=== PATIENT | male | born 1975 | race Caucasian/White ===

== ENCOUNTER → 2017-07-28 | Outpatient (CLI) | payer OTHER, MEDICAID ==
[2016-11-08 19:39] VITALS: BP 131/72
--- NOTE | 2017-07-28 15:47 | RAD ---
Examination: X-rays of the left ankle. Clinical history: Left ankle swelling. Technique: Three views of the left ankle were obtained. Comparison: None available. Findings: Periarticular osteopenia is noted at the ankle. There is an apparent deformity or indeterminate age fracture involving the navicular bone. A CT of th e left foot could be obtained for more complete evaluation of this finding. Moderate osteoarthritic changes are noted at the talonavicular joint. No soft tissue abnormality is noted. Impression: 1. There is an apparent deformity or indeterminate age fracture involving the navicular bone. A CT of the left foot could be obtained for more complete evaluation of this finding. 2. Periarticular osteopenia is noted at the ankle. 3. Arthropathy, as described above. Reported By:
--- NOTE | 2017-07-28 16:12 | RAD ---
Examination: Left foot, three views History: Swelling Findings: There is moderate osteopenia and trabecular coarsening.No acute fracture is seen. There is chronic narrowing and deformity of the medial pole of the navicular. No localized bone destruction or pathologic calcification is seen. There is osteoarthritis at the 1st MTP joint. Impression: Nonspecific osteopenia. Deformity of the navicular may be related to old trauma or neurop athic arthropathy, which has been previously suggested on MR examination. No acute features are demon strated. Reported By:
--- NOTE | 2017-07-28 16:21 | RAD ---
Examination: Left knee, two views History: Swelling Findings: There is no evidence for fracture, dislocation, patellar displacement or synovial effusion. There is mild osteopenia and slight cortical thinning. Articular spaces are preserved. Impression: No acute bony abnormality demonstrated. Reported By:
== END ==
LOC: RAD 14:48
PROVIDERS: ATTEND Nurse Practitioner Family
DX: M25.562 Pain in left knee (principal); R22.42 Localized swelling, mass and lump, left lower limb
CPT/HCPCS: 73560; 73610; 73630

== ENCOUNTER 2023-04-02 08:54 | Observation (INO) ==
[2023-04-02 12:21] LABS: BASOPHILS % (AUTO) 0.3 % (0.2-1.0); EOSINOPHILS % (AUTO) 0.4 % (0.9-2.9); HEMATOCRIT 41.6 % (42.0-54.0); HEMOGLOBIN 14.1 g/dL (13.5-18.0); LYMPHOCYTES % (AUTO) 10.9 % (21.0-51.0); MEAN CORPUSCULAR HEMOGLOBIN 29.9 pg (27.0-34.0); MEAN PLATELET VOLUME 10.3 fL (7.4-11.0); MONOCYTES # (AUTO) 0.9 x10^3/uL (0.3-0.8); MONOCYTES % (AUTO) 10.6 % (0.0-13.0); NEUTROPHILS # (AUTO) 6.9 x10^3/uL (2.2-4.8); NEUTROPHILS % (AUTO) 77.8 % (42.0-75.0); PLATELET COUNT 237 X10^3/uL (150.0-450.0); RED BLOOD COUNT 4.72 X10^6/uL (4.7-6.0); WHITE BLOOD COUNT 8.9 X10^3/uL (3.6-10.0)
[2023-04-02] MEDS ORDERED: NS 1/2 1,000 ML IV 1,000 ML IV ONE (12:33)
[2023-04-02 12:37] LABS: ALANINE AMINOTRANSFERASE 19 Units/L (12-78); ALBUMIN 3.3 g/dL (3.4-5.0); ALKALINE PHOSPHATASE 87 Units/L (46-116); ASPARTATE AMINO TRANSFERASE 22 Units/L (15-37); BLOOD UREA NITROGEN 19 mg/dL (7-18); CALCIUM 8.8 mg/dL (8.5-10.1); CHLORIDE 105 mmol/L (98-107); COR CA(FOR HYPOALB) 9.4 mg/dL (8.5-10.1); CREATININE 0.85 mg/dL (0.70-1.30); GLUCOSE 100 mg/dL (65-99); POTASSIUM 4.1 mmol/L (3.5-5.1); SODIUM 143 mmol/L (136-145); TOTAL PROTEIN 7.1 g/dL (6.4-8.2); eGFR NON BLACK RACES > 60 (>60)
[2023-04-02] MEDS: NS 1/2 1,000 ML IV 1,000 ML IV SCH (12:40)
[2023-04-02] MEDS: LEVAQUIN PREMIX IV 750 MG 750 MG/150 ML BAG IV SCH (12:43)
[2023-04-02] MEDS: ROBITUSSIN DM PO SCH ×3 (13:00→20:24)
[2023-04-02] MEDS: XOPENEX 1.25 MG/3 ML NEBULE NEB SCH ×3 (13:55→21:23)
[2023-04-02 14:33] VITALS: BMI 24.5
[2023-04-02] MEDS ORDERED: TRILEPTAL PO ONE (20:00)
[2023-04-02] MEDS: ZOLOFT PO SCH (20:24)
[2023-04-02] MEDS ORDERED: TRILEPTAL PO SCH (21:00)
[2023-04-02] MEDS: PULMICORT NEB TX 0.5 MG NEB SCH (21:23)
[2023-04-03] MEDS ORDERED: NS 1/2 1,000 ML IV 1,000 ML IV ONE (01:04)
--- NOTE | 2023-04-03 03:34 | RAD ---
HISTORYPNEUMONIA Relevant Clinical InformationSTUDYCHEST, 1 VIEWCOMPARISONNoneFINDINGSThe trachea is midline. The cardiac silhouette is unremarkable. There is consolidation involving the medial right lung. Left lung is clear. No pneumothorax. The bony thorax is unremarkable.IMPRESSIONRight lung pneumonia.Electronically signed by: Tanvir Weiner (Apr 03, 2023 03:33:13)
[2023-04-03] MEDS: NS 1/2 1,000 ML IV 1,000 ML IV SCH (05:20)
[2023-04-03 06:42] LABS: BASOPHILS % (AUTO) 0.4 % (0.2-1.0); EOSINOPHILS % (AUTO) 0.7 % (0.9-2.9); HEMATOCRIT 35.4 % (42.0-54.0); LYMPHOCYTES % (AUTO) 16.3 % (21.0-51.0); MEAN CORPUSCULAR HEMOGLOBIN 29.8 pg (27.0-34.0); MEAN CORPUSCULAR HGB CONC 33.8 g/dL (33.0-35.0); MEAN CORPUSCULAR VOLUME 88.2 fL (80.0-100.0); MONOCYTES # (AUTO) 0.9 x10^3/uL (0.3-0.8); MONOCYTES % (AUTO) 14.8 % (0.0-13.0); NEUTROPHILS % (AUTO) 67.8 % (42.0-75.0); PLATELET COUNT 215 X10^3/uL (150.0-450.0); RED BLOOD COUNT 4.01 X10^6/uL (4.7-6.0); RED CELL DISTRIBUTION WIDTH 14.1 % (11.6-16.5); WHITE BLOOD COUNT 5.8 X10^3/uL (3.6-10.0)
[2023-04-03 06:55] LABS: ALANINE AMINOTRANSFERASE 16 Units/L (12-78); ALBUMIN 2.6 g/dL (3.4-5.0); ALKALINE PHOSPHATASE 72 Units/L (46-116); ASPARTATE AMINO TRANSFERASE 15 Units/L (15-37); BLOOD UREA NITROGEN 13 mg/dL (7-18); CALCIUM 7.9 mg/dL (8.5-10.1); CHLORIDE 106 mmol/L (98-107); COR NA(FOR HYPERGLY) 141 mmol/L (136-145); CREATININE 0.75 mg/dL (0.70-1.30); GLUCOSE 111 mg/dL (65-99); MAGNESIUM 1.8 mg/dL (2.0-2.9); POTASSIUM 3.6 mmol/L (3.5-5.1); SODIUM 141 mmol/L (136-145); TOTAL PROTEIN 5.9 g/dL (6.4-8.2); eGFR NON BLACK RACES > 60 (>60)
[2023-04-03] MEDS ORDERED: CONSULT PHARMACY - POTASSIUM & MAGNESIUM XX SCH ×2 (08:00→09:00)
[2023-04-03] MEDS ORDERED: MAG-OX TAB PO SCH (08:00)
[2023-04-03] MEDS ORDERED: K-DUR TAB 20 MEQ PO SCH (08:00)
[2023-04-03] MEDS ORDERED: NS 1/2 + KCL 20 MEQ/L 1,000 ML IV SCH (08:00)
[2023-04-03] MEDS: PULMICORT NEB TX 0.5 MG NEB SCH ×2 (08:16→20:30)
[2023-04-03] MEDS: XOPENEX 1.25 MG/3 ML NEBULE NEB SCH ×4 (08:16→20:30)
[2023-04-03] MEDS ORDERED: DEPAKOTE D.R. TAB PO ONE (08:26)
[2023-04-03] MEDS ORDERED: DEPAKENE PO SCH (09:00)
[2023-04-03] MEDS ORDERED: DEPAKOTE D.R. TAB PO SCH (09:00)
[2023-04-03] MEDS: ROBITUSSIN DM PO SCH ×4 (09:15→21:54)
[2023-04-03] MEDS: KLONOPIN TAB 1 MG PEG SCH (09:15)
[2023-04-03] MEDS: LEVAQUIN PREMIX IV 750 MG 750 MG/150 ML BAG IV SCH (09:15)
[2023-04-03] MEDS: ZOLOFT PO SCH ×2 (09:15→21:54)
[2023-04-03] MEDS: DEPAKENE GT SCH ×2 (10:17→21:54)
[2023-04-03] MEDS: NS 1/2 + KCL 20 MEQ/L 1,000 ML with MAGNESIUM SULFATE 50% INJ VIAL 1 G IV SCH ×4 (10:18→21:19)
[2023-04-03] MEDS ORDERED: MAGNESIUM SULFATE 50% INJ VIAL ONE (20:30)
--- NOTE | 2023-04-04 06:15 | RAD ---
HISTORYPNEUMONIA Relevant Clinical InformationSTUDYCHEST, 1 [id number] trachea is midline. The cardiac silhouette is mildly enlarged.. The lungs are clear without focal infiltrate or effusion. The bony thorax is unremarkable.IMPRESSIONMild cardiomegalyNo active cardiopulmonary disease.Electronically signed by: Tanvir Weiner (Apr 04, 2023 06:14:27)
[2023-04-04 06:38] LABS: BASOPHILS % (AUTO) 0.7 % (0.2-1.0); EOSINOPHILS # (AUTO) 0.2 x10^3/uL (0.0-0.2); EOSINOPHILS % (AUTO) 3.1 % (0.9-2.9); HEMATOCRIT 36.9 % (42.0-54.0); HEMOGLOBIN 12.4 g/dL (13.5-18.0); LYMPHOCYTES # (AUTO) 1.4 X10^3/uL (1.3-2.9); LYMPHOCYTES % (AUTO) 24.8 % (21.0-51.0); MEAN CORPUSCULAR HEMOGLOBIN 29.7 pg (27.0-34.0); MEAN CORPUSCULAR HGB CONC 33.6 g/dL (33.0-35.0); MEAN CORPUSCULAR VOLUME 88.3 fL (80.0-100.0); MEAN PLATELET VOLUME 9.9 fL (7.4-11.0); MONOCYTES # (AUTO) 0.8 x10^3/uL (0.3-0.8); MONOCYTES % (AUTO) 14.9 % (0.0-13.0); NEUTROPHILS # (AUTO) 3.1 x10^3/uL (2.2-4.8); NEUTROPHILS % (AUTO) 56.5 % (42.0-75.0); PLATELET COUNT 243 X10^3/uL (150.0-450.0); RED BLOOD COUNT 4.18 X10^6/uL (4.7-6.0); RED CELL DISTRIBUTION WIDTH 14.1 % (11.6-16.5); WHITE BLOOD COUNT 5.5 X10^3/uL (3.6-10.0)
[2023-04-04 06:59] LABS: ALANINE AMINOTRANSFERASE 17 Units/L (12-78); ALBUMIN 2.6 g/dL (3.4-5.0); ALKALINE PHOSPHATASE 74 Units/L (46-116); ASPARTATE AMINO TRANSFERASE 16 Units/L (15-37); BLOOD UREA NITROGEN 5 mg/dL (7-18); CALCIUM 7.8 mg/dL (8.5-10.1); CARBON DIOXIDE 22.9 mmol/L (21-32); CHLORIDE 108 mmol/L (98-107); COR CA(FOR HYPOALB) 8.9 mg/dL (8.5-10.1); CREATININE 0.78 mg/dL (0.70-1.30); GLUCOSE 108 mg/dL (65-99); POTASSIUM 3.6 mmol/L (3.5-5.1); SODIUM 143 mmol/L (136-145); TOTAL PROTEIN 5.9 g/dL (6.4-8.2); eGFR NON BLACK RACES > 60 (>60)
--- NOTE | 2023-04-04 07:29 | DR.H&P ---
H&P History & Physical for Day of: H&P Date: 04/02/23 Chief Complaint Chief Complaint: Cough, respiratory infection unresolved with outpatient treatment. Allergies Allergies Allergy/AdvReac Type Severity Reaction Status Date / Time ampicillin Allergy Unknown Verified 03/24/23 15:50 codeine Allergy Unknown Verified 03/24/23 15:50 Penicillins Allergy Unknown Verified 03/24/23 15:50 History of Present Illness History of Present Illness: This is a 48-year-old white male who has cerebral palsy. I have been treating him as an outpatient for tracheitis/tracheobr onchitis however the patient has not been getting better. We have given him steroids and the antibiotics to PEG tube however he has been getting worse. His mother called this morning and we decided to go ahead and direct admitted to the hospital so we started him on IV antibiotics, jet nebs and check a chest x-ray and routine labs. They got into the hospital they found him to be hypoxic with O2 sat of 89% on room air. They started him on 2 L and afterwards he came up to 93%. Chest x-ray still pending at this time however we have started him on IV Levaquin and done sputum cultures along with blood cultures. Past Medical History Past Medical History: Anxiety, Arthritis, Depression, GERD and Seizures Additional Medical History: Mental retardation Cerebral palsy; severe Past Surgical History Surgical History: Cholecystectomy Family History Family Medical History: Cancer and Coronary Artery Disease Social History Does patient currently use any type of tobacco product: No Have you used tobacco products in the last 12 months: No Type of Tobacco Use: None Does any household member use tobacco: No Alcohol Use: None Drug Use: None Medications Home Medications: Home Medications Medication Instructions Recorded Confirmed Type clonazepam 2 mg tablet 2 mg feeding tube DAILY 10/28/22 04/02/23 History divalproex 500 mg tablet,delayed 500 mg DAILY 10/28/22 04/02/23 History release oxcarbazepine 150 mg tablet 150 mg feeding tube HS 10/28/22 04/02/23 History sertraline 50 mg tablet 50 mg feeding tube BID 10/28/22 04/02/23 History Labs Result Diagrams: 04/04/23 06:06 04/04/23 06:06 Labs: Laboratory WBC 8.9 X10^3/uL (3.6-10.0) 04/02/23 11:17 RBC 4.72 X10^6/uL (4.7-6.0) 04/02/23 11:17 Hgb 14.1 g/dL (13.5-18.0) 04/02/23 11:17 Hct 41.6 % (42.0-54.0) L 04/02/23 11:17 MCV 88.0 fL (80.0-100.0) 04/02/23 11:17 MCH 29.9 pg (27.0-34.0) 04/02/23 11:17 MCHC 34.0 g/dL (33.0-35.0) 04/02/23 11:17 RDW 14.0 % (11.6-16.5) 04/02/23 11:17 Plt Count 237 X10^3/uL (150.0-450.0) 04/02/23 11:17 MPV 10.3 fL (7.4-11.0) 04/02/23 11:17 Neut % (Auto) 77.8 % (42.0-75.0) H 04/02/23 11:17 Lymph % (Auto) 10.9 % (21.0-51.0) L 04/02/23 11:17 [place] % (Auto) 10.6 % (0.0-13.0) 04/02/23 11:17 Eos % (Auto) 0.4 % (0.9-2.9) L 04/02/23 11:17 Baso % (Auto) 0.3 % (0.2-1.0) 04/02/23 11:17 Neut # (Auto) 6.9 x10^3/uL (2.2-4.8) H 04/02/23 11:17 Lymph # (Auto) 1.0 X10^3/uL (1.3-2.9) L 04/02/23 11:17 [place] # (Auto) 0.9 x10^3/uL (0.3-0.8) H 04/02/23 11:17 Eos # (Auto) 0.0 x10^3/uL (0.0-0.2) 04/02/23 11:17 Baso # (Auto) 0.0 X10^3/uL (0.0-0.1) 04/02/23 11:17 Absolute Nucleated RBC 0.1 /100WBC 04/02/23 11:17 Sodium 143 mmol/L (136-145) 04/02/23 11:17 Corrected Sodium TNP 04/02/23 11:17 Potassium 4.1 mmol/L (3.5-5.1) 04/02/23 11:17 Chloride 105 mmol/L (98-107) 04/02/23 11:17 Carbon Dioxide 26.0 mmol/L (21-32) 04/02/23 11:17 BUN 19 mg/dL (7-18) H 04/02/23 11:17 Creatinine 0.85 mg/dL (0.70-1.30) 04/02/23 11:17 Est GFR (MDRD) Af Amer > 60 (>60) 04/02/23 11:17 Est GFR (MDRD) Non-Af > 60 (>60) 04/02/23 11:17 Glucose 100 mg/dL (65-99) H 04/02/23 11:17 Lactic Acid 0.8 mmol/L (0.4-2.0) 04/02/23 11:17 Calcium 8.8 mg/dL (8.5-10.1) 04/02/23 11:17 Corrected Calcium 9.4 mg/dL (8.5-10.1) 04/02/23 11:17 Total Bilirubin 0.40 mg/dL (0.2-1.0) 04/02/23 11:17 AST 22 Units/L (15-37) 04/02/23 11:17 ALT 19 Units/L (12-78) 04/02/23 11:17 Alkaline Phosphatase 87 Units/L (46-116) 04/02/23 11:17 Total Protein 7.1 g/dL (6.4-8.2) 04/02/23 11:17 Albumin 3.3 g/dL (3.4-5.0) L 04/02/23 11:17 Globulin 3.8 g/dL (2.5-4.5) 04/02/23 11:17 Albumin/Globulin Ratio 0.9 Ratio (1.1-2.1) L 04/02/23 11:17 Review of Systems Eyes: Other (Unable to obtain since patient has cerebral palsy and does not communicate.) Physical Exam Vital Signs: Vital Signs Temperature 97.4 F Pulse Rate [Bilateral Radial] 87 Pulse Rate 87 Respiratory Rate 20 Blood Pressure [Right Arm] 119/72 O2 Sat by Pulse Oximetry 93 O2 Sat by Pulse Oximetry 89 Oriented: Unable to test Respiratory: Diminished Throughout and Rhonchi Throughout Cardiovascular: Normal Auscultation: Bowel Sounds: Normal Palpation: Normal Tenderness: Normal Skin: Normal Musculoskeletal: Normal Psychiatric: Normal Mood Description: Calm Affect: Quiet Speech Pattern: Aphasic Assessment/Plan (1) Tracheobronchitis: Status: Acute Plan: Patient was started on pneumonia protocol. Lactic acid has been checked along with sputum culture, blood cultures x2 and the patient has been started on Levaquin 750 mg IV daily. Follow-up with chest x-ray when available. (2) Cerebral palsy: Qualifiers: Cerebral palsy type: unspecified type Qualified Code(s): G80.9 - Cerebral palsy, unspecified Status: Acute Plan: Continue divalproex, oxcarbazepine, sertraline and clonazepam. (3) GERD (gastroesophageal reflux disease): Status: Acute Plan: Start Pepcid 40 mg IV twice daily for GI protection. Review H&P Reviewed: Yes Patient was examined?: Yes
--- NOTE | 2023-04-04 07:30 | PCM.PROG ---
Progress Note Progress Note for Day of Date of Exam: 04/03/23 Subjective Subjective: Patient is doing better overall this morning. His mother reports that when he got here after with his oxygen on he settled down and was back to his normal self. Exam of his lungs today shows that he has significantly improved aeration his O2 sat is to the mid 90s. He has had no fever since admission. Continue treatment of the discharge patient 1 to 2 days. Past Medical Family Social History Allergies: Allergies ampicillin Allergy (Unknown, Verified 03/24/23 15:50) codeine Allergy (Unknown, Verified 03/24/23 15:50) Reason: Drug allergy Penicillins Allergy (Unknown, Verified 03/24/23 15:50) Vital Signs and I&O's Vital Signs: Vital Signs Temperature 97.9 F Temperature 98.7 F Pulse Rate [Bilateral Radial] 60 Pulse Rate [Bilateral Radial] 101 Respiratory Rate 20 Respiratory Rate 20 Blood Pressure [Left Arm] 84/55 Blood Pressure [Left Arm] 88/65 O2 Sat by Pulse Oximetry 95 O2 Sat by Pulse Oximetry 94 Intake and Output: Intake & Output 04/01/23 04/02/23 04/03/23 04/04/23 11:59 11:59 11:59 11:59 Intake Total 821 / 821 3348 / 3348 Balance 821 / 821 3348 / 3348 Physical Exam Oriented: Unable to test Respiratory: Diminished Cardiovascular: Normal Auscultation: Bowel Sounds: Normal Tenderness: Normal Skin: Normal Musculoskeletal: Normal Psychiatric: Normal Mood Description: Calm Affect: Quiet Speech Pattern: Appropriate Laboratory and Diagnostics Result Diagrams: 04/04/23 06:06 04/04/23 06:06 Labs: Laboratory WBC 5.5 X10^3/uL (3.6-10.0) 04/04/23 06:06 RBC 4.18 X10^6/uL (4.7-6.0) L 04/04/23 06:06 Hgb 12.4 g/dL (13.5-18.0) L 04/04/23 06:06 Hct 36.9 % (42.0-54.0) L 04/04/23 06:06 MCV 88.3 fL (80.0-100.0) 04/04/23 06:06 MCH 29.7 pg (27.0-34.0) 04/04/23 06:06 MCHC 33.6 g/dL (33.0-35.0) 04/04/23 06:06 RDW 14.1 % (11.6-16.5) 04/04/23 06:06 Plt Count 243 X10^3/uL (150.0-450.0) 04/04/23 06:06 MPV 9.9 fL (7.4-11.0) 04/04/23 06:06 Neut % (Auto) 56.5 % (42.0-75.0) 04/04/23 06:06 Lymph % (Auto) 24.8 % (21.0-51.0) 04/04/23 06:06 [place] % (Auto) 14.9 % (0.0-13.0) H 04/04/23 06:06 Eos % (Auto) 3.1 % (0.9-2.9) H 04/04/23 06:06 Baso % (Auto) 0.7 % (0.2-1.0) 04/04/23 06:06 Neut # (Auto) 3.1 x10^3/uL (2.2-4.8) 04/04/23 06:06 Lymph # (Auto) 1.4 X10^3/uL (1.3-2.9) 04/04/23 06:06 [place] # (Auto) 0.8 x10^3/uL (0.3-0.8) 04/04/23 06:06 Eos # (Auto) 0.2 x10^3/uL (0.0-0.2) 04/04/23 06:06 Baso # (Auto) 0.0 X10^3/uL (0.0-0.1) 04/04/23 06:06 Absolute Nucleated RBC 0.0 /100WBC 04/04/23 06:06 Sodium 143 mmol/L (136-145) 04/04/23 06:06 Corrected Sodium TNP 04/04/23 06:06 Potassium 3.6 mmol/L (3.5-5.1) 04/04/23 06:06 Chloride 108 mmol/L (98-107) H 04/04/23 06:06 Carbon Dioxide 22.9 mmol/L (21-32) 04/04/23 06:06 BUN 5 mg/dL (7-18) L 04/04/23 06:06 Creatinine 0.78 mg/dL (0.70-1.30) 04/04/23 06:06 Est GFR (MDRD) Af Amer > 60 (>60) 04/04/23 06:06 Est GFR (MDRD) Non-Af > 60 (>60) 04/04/23 06:06 Glucose 108 mg/dL (65-99) H 04/04/23 06:06 Lactic Acid 0.8 mmol/L (0.4-2.0) 04/02/23 11:17 Calcium 7.8 mg/dL (8.5-10.1) L 04/04/23 06:06 Corrected Calcium 8.9 mg/dL (8.5-10.1) 04/04/23 06:06 Magnesium 1.8 mg/dL (2.0-2.9) L 04/03/23 05:40 Total Bilirubin 0.20 mg/dL (0.2-1.0) 04/04/23 06:06 AST 16 Units/L (15-37) 04/04/23 06:06 ALT 17 Units/L (12-78) 04/04/23 06:06 Alkaline Phosphatase 74 Units/L (46-116) 04/04/23 06:06 Total Protein 5.9 g/dL (6.4-8.2) L 04/04/23 06:06 Albumin 2.6 g/dL (3.4-5.0) L 04/04/23 06:06 Globulin 3.3 g/dL (2.5-4.5) 04/04/23 06:06 Albumin/Globulin Ratio 0.8 Ratio (1.1-2.1) L 04/04/23 06:06 Plan (1) Tracheobronchitis: Status: Acute Plan: Patient was started on pneumonia protocol. Lactic acid has been checked along with sputum culture, blood cultures x2 and the patient has been started on Levaquin 750 mg IV daily. Follow-up with chest x-ray when available. (2) Cerebral palsy: Status: Acute Qualifiers: Cerebral palsy type: unspecified type Qualified Code(s): G80.9 - Cerebral palsy, unspecified Plan: Continue divalproex, oxcarbazepine, sertraline and clonazepam. (3) GERD (gastroesophageal reflux disease): Status: Acute Plan: Start Pepcid 40 mg IV twice daily for GI protection.
[2023-04-04] MEDS: LEVAQUIN PREMIX IV 750 MG 750 MG/150 ML BAG IV SCH (08:19)
[2023-04-04] MEDS: ROBITUSSIN DM PO SCH ×4 (08:20→21:28)
[2023-04-04] MEDS: PULMICORT NEB TX 0.5 MG NEB SCH ×2 (08:20→20:05)
[2023-04-04] MEDS: DEPAKENE GT SCH ×2 (08:20→21:28)
[2023-04-04] MEDS: XOPENEX 1.25 MG/3 ML NEBULE NEB SCH ×4 (08:21→20:05)
[2023-04-04] MEDS: KLONOPIN TAB 1 MG PEG SCH (08:21)
[2023-04-04] MEDS: ZOLOFT PO SCH ×2 (08:21→21:28)
[2023-04-04] MEDS: NS 1/2 + KCL 20 MEQ/L 1,000 ML with MAGNESIUM SULFATE 50% INJ VIAL 1 G IV SCH ×4 (11:23→21:28)
[2023-04-04] MEDS ORDERED: SOLU-Medrol 125 MG VIAL IVP ONE (13:15)
--- NOTE | 2023-04-04 13:15 | PCM.PROG ---
Progress Note Progress Note for Day of Date of Exam: 04/04/23 Subjective Subjective: Patient is resting comfortably this morning. He is satting between 94 and 95% on 2 L nasal cannula today. He has increased air entry bilaterally and decreased rhonchi. His white count is normal however given his low O2 sat still we will keep him over the next few days and I will add IV Solu-Medrol to his treatment today. Past Medical Family Social History Allergies: Allergies ampicillin Allergy (Unknown, Verified 03/24/23 15:50) codeine Allergy (Unknown, Verified 03/24/23 15:50) Reason: Drug allergy Penicillins Allergy (Unknown, Verified 03/24/23 15:50) Review of Systems ROS: No change since H&P Vital Signs and I&O's Vital Signs: Vital Signs Temperature 97.9 F Temperature 98.0 F Pulse Rate [Bilateral Radial] 76 Pulse Rate [Bilateral Radial] 77 Pulse Rate 81 Pulse Rate 80 Respiratory Rate 20 Respiratory Rate 20 Blood Pressure [Left Arm] 91/60 Blood Pressure [Left Arm] 125/60 O2 Sat by Pulse Oximetry 94 O2 Sat by Pulse Oximetry 94 O2 Sat by Pulse Oximetry 94 O2 Sat by Pulse Oximetry 94 Intake and Output: Intake & Output 04/02/23 04/03/23 04/04/23 04/05/23 11:59 11:59 11:59 11:59 Intake Total 821 / 821 3348 / 3348 Balance 821 / 821 3348 / 3348 Physical Exam Oriented: Unable to test Respiratory: Diminished Cardiovascular: Normal Auscultation: Bowel Sounds: Normal Tenderness: Normal Skin: Normal Musculoskeletal: Normal Psychiatric: Normal Mood Description: Calm Affect: Quiet Speech Pattern: Appropriate Laboratory and Diagnostics Result Diagrams: 04/04/23 06:06 04/04/23 06:06 Labs: 04/02/23 16:04 Blood Blood Culture - Preliminary 04/02/23 11:17 Blood Blood Culture - Preliminary Laboratory WBC 5.5 X10^3/uL (3.6-10.0) 04/04/23 06:06 RBC 4.18 X10^6/uL (4.7-6.0) L 04/04/23 06:06 Hgb 12.4 g/dL (13.5-18.0) L 04/04/23 06:06 Hct 36.9 % (42.0-54.0) L 04/04/23 06:06 MCV 88.3 fL (80.0-100.0) 04/04/23 06:06 MCH 29.7 pg (27.0-34.0) 04/04/23 06:06 MCHC 33.6 g/dL (33.0-35.0) 04/04/23 06:06 RDW 14.1 % (11.6-16.5) 04/04/23 06:06 Plt Count 243 X10^3/uL (150.0-450.0) 04/04/23 06:06 MPV 9.9 fL (7.4-11.0) 04/04/23 06:06 Neut % (Auto) 56.5 % (42.0-75.0) 04/04/23 06:06 Lymph % (Auto) 24.8 % (21.0-51.0) 04/04/23 06:06 [place] % (Auto) 14.9 % (0.0-13.0) H 04/04/23 06:06 Eos % (Auto) 3.1 % (0.9-2.9) H 04/04/23 06:06 Baso % (Auto) 0.7 % (0.2-1.0) 04/04/23 06:06 Neut # (Auto) 3.1 x10^3/uL (2.2-4.8) 04/04/23 06:06 Lymph # (Auto) 1.4 X10^3/uL (1.3-2.9) 04/04/23 06:06 [place] # (Auto) 0.8 x10^3/uL (0.3-0.8) 04/04/23 06:06 Eos # (Auto) 0.2 x10^3/uL (0.0-0.2) 04/04/23 06:06 Baso # (Auto) 0.0 X10^3/uL (0.0-0.1) 04/04/23 06:06 Absolute Nucleated RBC 0.0 /100WBC 04/04/23 06:06 Sodium 143 mmol/L (136-145) 04/04/23 06:06 Corrected Sodium TNP 04/04/23 06:06 Potassium 3.6 mmol/L (3.5-5.1) 04/04/23 06:06 Chloride 108 mmol/L (98-107) H 04/04/23 06:06 Carbon Dioxide 22.9 mmol/L (21-32) 04/04/23 06:06 BUN 5 mg/dL (7-18) L 04/04/23 06:06 Creatinine 0.78 mg/dL (0.70-1.30) 04/04/23 06:06 Est GFR (MDRD) Af Amer > 60 (>60) 04/04/23 06:06 Est GFR (MDRD) Non-Af > 60 (>60) 04/04/23 06:06 Glucose 108 mg/dL (65-99) H 04/04/23 06:06 Lactic Acid 0.8 mmol/L (0.4-2.0) 04/02/23 11:17 Calcium 7.8 mg/dL (8.5-10.1) L 04/04/23 06:06 Corrected Calcium 8.9 mg/dL (8.5-10.1) 04/04/23 06:06 Magnesium 1.8 mg/dL (2.0-2.9) L 04/03/23 05:40 Total Bilirubin 0.20 mg/dL (0.2-1.0) 04/04/23 06:06 AST 16 Units/L (15-37) 04/04/23 06:06 ALT 17 Units/L (12-78) 04/04/23 06:06 Alkaline Phosphatase 74 Units/L (46-116) 04/04/23 06:06 Total Protein 5.9 g/dL (6.4-8.2) L 04/04/23 06:06 Albumin 2.6 g/dL (3.4-5.0) L 04/04/23 06:06 Globulin 3.3 g/dL (2.5-4.5) 04/04/23 06:06 Albumin/Globulin Ratio 0.8 Ratio (1.1-2.1) L 04/04/23 06:06 Plan (1) Tracheobronchitis: Status: Acute Narrative Support Text: Chest x-ray shows no acute cardiopulmonary process. Plan: Patient was started on pneumonia protocol. Lactic acid has been checked along with sputum culture, blood cultures x2 and the patient has been started on Levaquin 750 mg IV daily. Add IV Solu-Medrol today. (2) Hypoxia: Status: Acute Plan: Add IV Solu-Medrol 125 mg IV x1 then 60 mg IV twice daily. (3) Cerebral palsy: Status: Acute Qualifiers: Cerebral palsy type: unspecified type Qualified Code(s): G80.9 - Cerebral palsy, unspecified Plan: Continue divalproex, oxcarbazepine, sertraline and clonazepam. (4) GERD (gastroesophageal reflux disease): Status: Acute Plan: Start Pepcid 40 mg IV twice daily for GI protection.
[2023-04-04] MEDS ORDERED: MAGNESIUM SULFATE 50% INJ VIAL ONE (21:18)
[2023-04-04] MEDS: SOLU-Medrol 125 MG VIAL IVP SCH (21:28)
[2023-04-05] MEDS: NS 1/2 + KCL 20 MEQ/L 1,000 ML with MAGNESIUM SULFATE 50% INJ VIAL 1 G IV SCH ×4 (00:13→15:30)
[2023-04-05 06:24] LABS: BASOPHILS % (AUTO) 0.5 % (0.2-1.0); HEMOGLOBIN 12.7 g/dL (13.5-18.0); LYMPHOCYTES # (AUTO) 0.7 X10^3/uL (1.3-2.9); LYMPHOCYTES % (AUTO) 10.3 % (21.0-51.0); MEAN CORPUSCULAR HEMOGLOBIN 29.5 pg (27.0-34.0); MEAN CORPUSCULAR HGB CONC 33.5 g/dL (33.0-35.0); MEAN CORPUSCULAR VOLUME 88.1 fL (80.0-100.0); MEAN PLATELET VOLUME 10.2 fL (7.4-11.0); MONOCYTES # (AUTO) 0.4 x10^3/uL (0.3-0.8); MONOCYTES % (AUTO) 6.4 % (0.0-13.0); NEUTROPHILS # (AUTO) 5.5 x10^3/uL (2.2-4.8); NEUTROPHILS % (AUTO) 82.8 % (42.0-75.0); PLATELET COUNT 322 X10^3/uL (150.0-450.0); RED BLOOD COUNT 4.31 X10^6/uL (4.7-6.0); RED CELL DISTRIBUTION WIDTH 14.5 % (11.6-16.5); WHITE BLOOD COUNT 6.6 X10^3/uL (3.6-10.0)
[2023-04-05 06:41] LABS: ALANINE AMINOTRANSFERASE 14 Units/L (12-78); ALBUMIN 2.9 g/dL (3.4-5.0); ALKALINE PHOSPHATASE 75 Units/L (46-116); ASPARTATE AMINO TRANSFERASE 10 Units/L (15-37); BLOOD UREA NITROGEN 6 mg/dL (7-18); CALCIUM 8.1 mg/dL (8.5-10.1); CARBON DIOXIDE 23.5 mmol/L (21-32); CHLORIDE 109 mmol/L (98-107); COR NA(FOR HYPERGLY) 142 mmol/L (136-145); CREATININE 0.67 mg/dL (0.70-1.30); GLUCOSE 136 mg/dL (65-99); MAGNESIUM 2.4 mg/dL (2.0-2.9); POTASSIUM 4.2 mmol/L (3.5-5.1); SODIUM 141 mmol/L (136-145); TOTAL PROTEIN 6.3 g/dL (6.4-8.2); eGFR NON BLACK RACES > 60 (>60)
[2023-04-05] MEDS: KLONOPIN TAB 1 MG PEG SCH (08:33)
[2023-04-05] MEDS: DEPAKENE GT SCH ×2 (08:33→20:24)
[2023-04-05] MEDS: XOPENEX 1.25 MG/3 ML NEBULE NEB SCH ×4 (08:34→20:20)
[2023-04-05] MEDS: PULMICORT NEB TX 0.5 MG NEB SCH ×2 (08:34→20:20)
[2023-04-05] MEDS: LEVAQUIN PREMIX IV 750 MG 750 MG/150 ML BAG IV SCH (08:34)
[2023-04-05] MEDS: ROBITUSSIN DM PO SCH ×4 (08:34→20:24)
[2023-04-05] MEDS: ZOLOFT PO SCH ×2 (08:34→20:25)
[2023-04-05] MEDS: COLACE SYRUP 100 MG UDC PO SCH ×2 (08:34→20:24)
[2023-04-05] MEDS: SOLU-Medrol 125 MG VIAL IVP SCH ×2 (08:34→20:24)
--- NOTE | 2023-04-05 12:17 | CT ---
HISTORYHYPOXIASTUDYCHEST W/O CONCOMPARISONNoneTECHNIQUEMultiple axial images of the chest were obtained from the thoracic inlet to the upper abdomen without the administration of IV contrast. Dose reduction techniques including Automated Exposure Control (AEC) and adjustment of mA and kV were utilized.FINDINGSThe mediastinum does not demonstrate significant pathological lymphadenopathy. There is no pericardial effusion observed. The thoracic aorta is normal in its contour without evidence for aneurysmal dilatation. .Evaluation of the lung parenchyma demonstrates trace effusions with some faint hazy opacities in lung bases which may be due to early changes of pneumonia. No large area of consolidation is seen.. No pulmonary nodule or mass can be identified. The bony thorax is unremarkable in its appearance . The visualized portions of the upper abdomen are grossly unremarkable .IMPRESSIONTrace bilateral effusions and hazy ground-glass opacities in lung bases probably due to early changes of pneumonia..Electronically signed by: VARGAS WEINSTEIN (Apr 05, 2023 12:15:41)
[2023-04-06] MEDS: NS 1/2 + KCL 20 MEQ/L 1,000 ML with MAGNESIUM SULFATE 50% INJ VIAL 1 G IV SCH ×4 (03:14→15:01)
[2023-04-06 06:40] LABS: BASOPHILS % (AUTO) 0.2 % (0.2-1.0); HEMATOCRIT 38.5 % (42.0-54.0); HEMOGLOBIN 12.9 g/dL (13.5-18.0); LYMPHOCYTES % (AUTO) 12.4 % (21.0-51.0); MEAN CORPUSCULAR HEMOGLOBIN 29.7 pg (27.0-34.0); MEAN CORPUSCULAR HGB CONC 33.6 g/dL (33.0-35.0); MEAN CORPUSCULAR VOLUME 88.5 fL (80.0-100.0); MEAN PLATELET VOLUME 10.1 fL (7.4-11.0); MONOCYTES # (AUTO) 0.5 x10^3/uL (0.3-0.8); MONOCYTES % (AUTO) 6.8 % (0.0-13.0); NEUTROPHILS # (AUTO) 6.4 x10^3/uL (2.2-4.8); NEUTROPHILS % (AUTO) 80.6 % (42.0-75.0); PLATELET COUNT 311 X10^3/uL (150.0-450.0); RED BLOOD COUNT 4.35 X10^6/uL (4.7-6.0); RED CELL DISTRIBUTION WIDTH 14.2 % (11.6-16.5); WHITE BLOOD COUNT 7.9 X10^3/uL (3.6-10.0)
[2023-04-06 06:58] LABS: ALANINE AMINOTRANSFERASE 15 Units/L (12-78); ALBUMIN 2.9 g/dL (3.4-5.0); ALKALINE PHOSPHATASE 74 Units/L (46-116); ASPARTATE AMINO TRANSFERASE 14 Units/L (15-37); BLOOD UREA NITROGEN 8 mg/dL (7-18); CALCIUM 8.1 mg/dL (8.5-10.1); CARBON DIOXIDE 23.6 mmol/L (21-32); CHLORIDE 108 mmol/L (98-107); COR NA(FOR HYPERGLY) 144 mmol/L (136-145); CREATININE 0.74 mg/dL (0.70-1.30); GLUCOSE 125 mg/dL (65-99); POTASSIUM 4.5 mmol/L (3.5-5.1); SODIUM 143 mmol/L (136-145); TOTAL PROTEIN 6.2 g/dL (6.4-8.2); eGFR NON BLACK RACES > 60 (>60)
[2023-04-06] MEDS: XOPENEX 1.25 MG/3 ML NEBULE NEB SCH ×4 (08:20→20:45)
[2023-04-06] MEDS: PULMICORT NEB TX 0.5 MG NEB SCH ×2 (08:20→20:45)
[2023-04-06] MEDS: SOLU-Medrol 125 MG VIAL IVP SCH ×2 (10:00→20:51)
[2023-04-06] MEDS: DEPAKENE GT SCH ×2 (10:00→20:51)
[2023-04-06] MEDS: COLACE SYRUP 100 MG UDC PO SCH ×2 (10:00→20:51)
[2023-04-06] MEDS: ZOLOFT PO SCH ×2 (10:00→20:51)
[2023-04-06] MEDS: LEVAQUIN PREMIX IV 750 MG 750 MG/150 ML BAG IV SCH (10:00)
[2023-04-06] MEDS: ROBITUSSIN DM PO SCH ×4 (10:11→20:51)
[2023-04-06] MEDS: KLONOPIN TAB 1 MG PEG SCH (10:12)
[2023-04-07] MEDS ORDERED: MAGNESIUM SULFATE 50% INJ VIAL ONE (03:24)
[2023-04-07] MEDS: NS 1/2 + KCL 20 MEQ/L 1,000 ML with MAGNESIUM SULFATE 50% INJ VIAL 1 G IV SCH ×4 (04:16→18:20)
[2023-04-07 06:05] LABS: BASOPHILS % (AUTO) 0.5 % (0.2-1.0); HEMATOCRIT 36.8 % (42.0-54.0); HEMOGLOBIN 12.6 g/dL (13.5-18.0); LYMPHOCYTES % (AUTO) 13.7 % (21.0-51.0); MEAN CORPUSCULAR HGB CONC 34.2 g/dL (33.0-35.0); MEAN CORPUSCULAR VOLUME 87.9 fL (80.0-100.0); MEAN PLATELET VOLUME 10.1 fL (7.4-11.0); MONOCYTES # (AUTO) 0.5 x10^3/uL (0.3-0.8); MONOCYTES % (AUTO) 6.7 % (0.0-13.0); NEUTROPHILS # (AUTO) 5.7 x10^3/uL (2.2-4.8); NEUTROPHILS % (AUTO) 79.1 % (42.0-75.0); PLATELET COUNT 308 X10^3/uL (150.0-450.0); RED BLOOD COUNT 4.19 X10^6/uL (4.7-6.0); RED CELL DISTRIBUTION WIDTH 14.5 % (11.6-16.5); WHITE BLOOD COUNT 7.2 X10^3/uL (3.6-10.0)
[2023-04-07 06:24] LABS: ALANINE AMINOTRANSFERASE 13 Units/L (12-78); ALBUMIN 2.7 g/dL (3.4-5.0); ALKALINE PHOSPHATASE 69 Units/L (46-116); ASPARTATE AMINO TRANSFERASE 10 Units/L (15-37); BLOOD UREA NITROGEN 8 mg/dL (7-18); CALCIUM 7.8 mg/dL (8.5-10.1); CARBON DIOXIDE 26.2 mmol/L (21-32); CHLORIDE 107 mmol/L (98-107); COR CA(FOR HYPOALB) 8.8 mg/dL (8.5-10.1); COR NA(FOR HYPERGLY) 143 mmol/L (136-145); GLUCOSE 125 mg/dL (65-99); POTASSIUM 4.6 mmol/L (3.5-5.1); SODIUM 142 mmol/L (136-145); TOTAL PROTEIN 5.9 g/dL (6.4-8.2); eGFR NON BLACK RACES > 60 (>60)
[2023-04-07] MEDS: SOLU-Medrol 125 MG VIAL IVP SCH ×2 (08:26→21:00)
[2023-04-07] MEDS: LEVAQUIN PREMIX IV 750 MG 750 MG/150 ML BAG IV SCH (08:27)
[2023-04-07] MEDS: KLONOPIN TAB 1 MG PEG SCH (08:27)
[2023-04-07] MEDS: ROBITUSSIN DM PO SCH ×4 (08:27→21:03)
[2023-04-07] MEDS: ZOLOFT PO SCH ×2 (08:28→21:02)
[2023-04-07] MEDS: DEPAKENE GT SCH ×2 (08:28→21:02)
[2023-04-07] MEDS: COLACE SYRUP 100 MG UDC PO SCH ×2 (08:59→21:02)
[2023-04-07] MEDS: XOPENEX 1.25 MG/3 ML NEBULE NEB SCH ×4 (09:15→21:10)
[2023-04-07] MEDS: PULMICORT NEB TX 0.5 MG NEB SCH ×2 (09:15→21:10)
--- NOTE | 2023-04-07 19:49 | PCM.PROG ---
Progress Note Progress Note for Day of Date of Exam: 04/07/23 Subjective Subjective: Patient is resting comfortably this morning. His O2 sat is 95% on 2 L O2 via nasal cannula. He had no significant changes over the weekend. He did have a CT scan of his lungs over the weekend that showed groundglass opacities in the bibasilar lungs which the radiologist thought was changes due to pneumonia. His white blood cell count is normal this morning. He is doing better overall according to his mother. We will plan on giving him 1-2 more days of IV antibiotics and transitioning to oral antibiotics through his PEG tube along with a Medrol Dosepak taken as directed. At time of discharge. Past Medical Family Social History Allergies: Allergies ampicillin Allergy (Unknown, Verified 03/24/23 15:50) Penicillins Allergy (Unknown, Verified 03/24/23 15:50) Review of Systems ROS: No change since H&P Vital Signs and I&O's Vital Signs: Vital Signs Temperature 97.9 F Temperature 98.0 F Pulse Rate [Bilateral Radial] 87 Pulse Rate [Bilateral Radial] 92 Pulse Rate 56 Respiratory Rate 20 Respiratory Rate 20 Blood Pressure [Left Arm] 119/81 Blood Pressure [Left Arm] 110/75 O2 Sat by Pulse Oximetry 94 O2 Sat by Pulse Oximetry 93 O2 Sat by Pulse Oximetry 94 Intake and Output: Intake & Output 04/05/23 04/06/23 04/07/23 04/08/23 11:59 11:59 11:59 11:59 Intake Total 2412 / 2412 2599 / 2599 2401 / 2401 840 / 840 Balance 2412 / 2412 2599 / 2599 2401 / 2401 840 / 840 Physical Exam Oriented: Unable to test Respiratory: Diminished Cardiovascular: Normal Auscultation: Bowel Sounds: Normal Tenderness: Normal Skin: Normal Musculoskeletal: Normal Psychiatric: Normal Mood Description: Calm Affect: Quiet Speech Pattern: Appropriate Laboratory and Diagnostics Result Diagrams: 04/07/23 05:20 04/07/23 05:20 Labs: 04/02/23 11:17 Blood Blood Culture - Preliminary 04/02/23 16:04 Blood Blood Culture - Preliminary Laboratory WBC 7.2 X10^3/uL (3.6-10.0) 04/07/23 05:20 RBC 4.19 X10^6/uL (4.7-6.0) L 04/07/23 05:20 Hgb 12.6 g/dL (13.5-18.0) L 04/07/23 05:20 Hct 36.8 % (42.0-54.0) L 04/07/23 05:20 MCV 87.9 fL (80.0-100.0) 04/07/23 05:20 MCH 30.0 pg (27.0-34.0) 04/07/23 05:20 MCHC 34.2 g/dL (33.0-35.0) 04/07/23 05:20 RDW 14.5 % (11.6-16.5) 04/07/23 05:20 Plt Count 308 X10^3/uL (150.0-450.0) 04/07/23 05:20 MPV 10.1 fL (7.4-11.0) 04/07/23 05:20 Neut % (Auto) 79.1 % (42.0-75.0) H 04/07/23 05:20 Lymph % (Auto) 13.7 % (21.0-51.0) L 04/07/23 05:20 [place] % (Auto) 6.7 % (0.0-13.0) 04/07/23 05:20 Eos % (Auto) 0.0 % (0.9-2.9) L 04/07/23 05:20 Baso % (Auto) 0.5 % (0.2-1.0) 04/07/23 05:20 Neut # (Auto) 5.7 x10^3/uL (2.2-4.8) H 04/07/23 05:20 Lymph # (Auto) 1.0 X10^3/uL (1.3-2.9) L 04/07/23 05:20 [place] # (Auto) 0.5 x10^3/uL (0.3-0.8) 04/07/23 05:20 Eos # (Auto) 0.0 x10^3/uL (0.0-0.2) 04/07/23 05:20 Baso # (Auto) 0.0 X10^3/uL (0.0-0.1) 04/07/23 05:20 Absolute Nucleated RBC 0.0 /100WBC 04/07/23 05:20 Sodium 142 mmol/L (136-145) 04/07/23 05:20 Corrected Sodium 143 mmol/L (136-145) 04/07/23 05:20 Potassium 4.6 mmol/L (3.5-5.1) 04/07/23 05:20 Chloride 107 mmol/L (98-107) 04/07/23 05:20 Carbon Dioxide 26.2 mmol/L (21-32) 04/07/23 05:20 BUN 8 mg/dL (7-18) 04/07/23 05:20 Creatinine 0.70 mg/dL (0.70-1.30) 04/07/23 05:20 Est GFR (MDRD) Af Amer > 60 (>60) 04/07/23 05:20 Est GFR (MDRD) Non-Af > 60 (>60) 04/07/23 05:20 Glucose 125 mg/dL (65-99) H 04/07/23 05:20 Lactic Acid 0.8 mmol/L (0.4-2.0) 04/02/23 11:17 Calcium 7.8 mg/dL (8.5-10.1) L 04/07/23 05:20 Corrected Calcium 8.8 mg/dL (8.5-10.1) 04/07/23 05:20 Magnesium 2.4 mg/dL (2.0-2.9) 04/05/23 05:47 Total Bilirubin 0.20 mg/dL (0.2-1.0) 04/07/23 05:20 AST 10 Units/L (15-37) L 04/07/23 05:20 ALT 13 Units/L (12-78) 04/07/23 05:20 Alkaline Phosphatase 69 Units/L (46-116) 04/07/23 05:20 B-Natriuretic Peptide 61.2 pg/mL (0-79) 04/05/23 05:47 Total Protein 5.9 g/dL (6.4-8.2) L 04/07/23 05:20 Albumin 2.7 g/dL (3.4-5.0) L 04/07/23 05:20 Globulin 3.2 g/dL (2.5-4.5) 04/07/23 05:20 Albumin/Globulin Ratio 0.8 Ratio (1.1-2.1) L 04/07/23 05:20 Resp Viral Panel (PCR) See scanned report 04/02/23 10:53 Plan (1) Tracheobronchitis: Status: Acute Plan: Patient was started on pneumonia protocol. Continue Levaquin 750 mg IV daily. Continue IV Solu-Medrol 80 mg IV every 12 hours. (2) Hypoxia: Status: Acute Plan: Continue Solu-Medrol 80 mg IV twice daily. (3) Cerebral palsy: Status: Acute Qualifiers: Cerebral palsy type: unspecified type Qualified Code(s): G80.9 - Cerebral palsy, unspecified Plan: Continue divalproex, oxcarbazepine, sertraline and clonazepam. (4) GERD (gastroesophageal reflux disease): Status: Acute Plan: Start Pepcid 40 mg IV twice daily for GI protection.
[2023-04-08] MEDS: NS 1/2 + KCL 20 MEQ/L 1,000 ML with MAGNESIUM SULFATE 50% INJ VIAL 1 G IV SCH ×2 (05:44)
[2023-04-08 06:36] LABS: BASOPHILS % (AUTO) 0.5 % (0.2-1.0); EOSINOPHILS % (AUTO) 0.4 % (0.9-2.9); HEMATOCRIT 40.1 % (42.0-54.0); HEMOGLOBIN 13.6 g/dL (13.5-18.0); LYMPHOCYTES # (AUTO) 1.5 X10^3/uL (1.3-2.9); LYMPHOCYTES % (AUTO) 17.8 % (21.0-51.0); MEAN CORPUSCULAR HEMOGLOBIN 29.9 pg (27.0-34.0); MEAN CORPUSCULAR HGB CONC 33.9 g/dL (33.0-35.0); MEAN CORPUSCULAR VOLUME 88.2 fL (80.0-100.0); MEAN PLATELET VOLUME 9.2 fL (7.4-11.0); MONOCYTES # (AUTO) 0.9 x10^3/uL (0.3-0.8); MONOCYTES % (AUTO) 11.2 % (0.0-13.0); NEUTROPHILS # (AUTO) 5.8 x10^3/uL (2.2-4.8); NEUTROPHILS % (AUTO) 70.1 % (42.0-75.0); PLATELET COUNT 321 X10^3/uL (150.0-450.0); RED BLOOD COUNT 4.55 X10^6/uL (4.7-6.0); RED CELL DISTRIBUTION WIDTH 14.3 % (11.6-16.5); WHITE BLOOD COUNT 8.3 X10^3/uL (3.6-10.0)
[2023-04-08 06:58] LABS: ALANINE AMINOTRANSFERASE 19 Units/L (12-78); ALKALINE PHOSPHATASE 85 Units/L (46-116); ASPARTATE AMINO TRANSFERASE 11 Units/L (15-37); BLOOD UREA NITROGEN 9 mg/dL (7-18); CALCIUM 7.7 mg/dL (8.5-10.1); CARBON DIOXIDE 23.6 mmol/L (21-32); CHLORIDE 106 mmol/L (98-107); COR CA(FOR HYPOALB) 8.5 mg/dL (8.5-10.1); COR NA(FOR HYPERGLY) 139 mmol/L (136-145); CREATININE 0.77 mg/dL (0.70-1.30); GLUCOSE 120 mg/dL (65-99); POTASSIUM 4.1 mmol/L (3.5-5.1); SODIUM 139 mmol/L (136-145); TOTAL PROTEIN 6.1 g/dL (6.4-8.2); eGFR NON BLACK RACES > 60 (>60)
[2023-04-08 07:44] VITALS: RESP 20
[2023-04-08] MEDS: XOPENEX 1.25 MG/3 ML NEBULE NEB SCH (08:25)
[2023-04-08] MEDS: PULMICORT NEB TX 0.5 MG NEB SCH (08:25)
[2023-04-08] MEDS: LEVAQUIN PREMIX IV 750 MG 750 MG/150 ML BAG IV SCH (08:42)
[2023-04-08] MEDS: ROBITUSSIN DM PO SCH ×2 (08:43→13:12)
[2023-04-08] MEDS: ZOLOFT PO SCH (08:43)
[2023-04-08] MEDS: DEPAKENE GT SCH (08:43)
[2023-04-08] MEDS: KLONOPIN TAB 1 MG PEG SCH (08:43)
[2023-04-08] MEDS: SOLU-Medrol 125 MG VIAL IVP SCH (08:44)
[2023-04-08] MEDS: COLACE SYRUP 100 MG UDC PO SCH (09:01)
[2023-04-08 09:11] VITALS: PULSE 84
[2023-04-08 11:31] VITALS: BP 94/64; TEMP 99.1; O2SAT 94
== END 2023-04-08 15:50 | disposition home or self-care (01) ==
LOC: MED/SURG
PROVIDERS: ADMIT Family Medicine; ATTEND Family Medicine
DX: F84.0 Autistic disorder; Z93.1 Gastrostomy status; K21.9 Gastro-esophageal reflux disease without esophagitis; F79 Unspecified intellectual disabilities; R09.02 Hypoxemia; J20.9 Acute bronchitis, unspecified; G80.9 Cerebral palsy, unspecified